=== PATIENT | male | born 1995 | race Caucasian/White ===

== ENCOUNTER 2017-10-25 19:16 | Emergency (ER) | payer OTHER ==
[2017-10-25] MEDS ORDERED: ALPRAZolam TAB* 0.5 MG PO ONE (20:48)
--- NOTE | 2017-10-25 21:45 | ED ---
Luigi Bella Rebecca, scribed for Steve Soriano MD on 10/25/17 at 2050 . Complex/Multi-Sys Presentation - HPI Summary HPI Summary: Pt is a 21 y/o M who presents to ED c/o anxiety. Pt reports he has been experiencing an increase in anxiety in the last 2 days, worsening tonight, though symptoms have improved since arrival. States that for the past 2 days he has been experiencing symptoms typical of his anxiety attacks, including decreased appetite and chest pressure. Sx aggravated by school beginning soon and having "a lot on my mind", alleviated by nothing. Denies SIs/HIs. Reports he has no official Dx of anxiety, though he has been seeing therapists for most of his life and that he gets anxiety attacks towards the end of each semester and 1-2x throughout the semester. Does not take any medications. - History Of Current Complaint Chief Complaint: EDGeneral Time Seen by Provider: 10/25/17 20:44 Hx Obtained From: Patient Onset/Duration: Lasting Days - 2 days, Still Present Severity Currently: Mild Severity Initially: Severe Location: Negative Aggravating Factor(s): School, "a lot on my mind" Alleviating Factor(s): Nothing Associated Signs And Symptoms: Positive: Other - Anxiety, decreased appetite, chest pressure Related History: Similar Episode/Diagnosed As: - Prior anxiety attacks - Allergies/Home Medications Allergies/Adverse Reactions: Allergies Allergy/AdvReac Type Severity Reaction Status Date / Time Tree Nuts Allergy Anaphylatic Verified 10/25/17 20:44 Shock PMH/Surg Hx/FS Hx/Imm Hx Previously Healthy: Yes Endocrine/Hematology History: Denies: Hx Diabetes Cardiovascular History: Denies: Hx Coronary Artery Disease, Hx Hypertension Infectious Disease History: No Infectious Disease History: Denies: Traveled Outside the [place] in Last 30 Days - Family History Known Family History: Positive: Other - ADHD, Bipolar Negative: Cardiac Disease - Social History Occupation: Student Alcohol Use: None Substance Use Type: Reports: None Smoking Status (MU): Never Smoked Tobacco Review of Systems Positive: Other - Chest pressure Positive: Other - Decreased appetite Positive: Anxious, Other - NEGATIVE: SIs/HIs All Other Systems Reviewed And Are Negative: Yes Physical Exam - Summary Physical Exam Summary: VITAL SIGNS: Reviewed. GENERAL: Patient is a well-developed and nourished male who is lying comfortable in the stretcher. Patient is not in any acute respiratory distress. HEAD AND FACE: No signs of trauma. No ecchymosis, hematomas or skull depressions. No sinus tenderness. EYES: PERRLA, EOMI x 2, No injected conjunctiva, no nystagmus. EARS: Hearing grossly intact. Ear canals and tympanic membranes are within normal limits. MOUTH: Oropharynx within normal limits. NECK: Supple, trachea is midline, no adenopathy, no JVD, no carotid bruit, no c- spine tenderness, neck with full ROM. CHEST: Symmetric, no tenderness at palpation LUNGS: Clear to auscultation bilaterally. No wheezing or crackles. CVS: Regular rate and rhythm, S1 and S2 present, no murmurs or gallops appreciated. ABDOMEN: Soft, non-tender. No signs of distention. No rebound no guarding, and no masses palpated. Bowel sounds are normal. EXTREMITIES: FROM in all major joints, no edema, no cyanosis or clubbing. NEURO: Alert and oriented x 3. No acute neurological deficits. Speech is normal and follows commands. SKIN: Dry and warm Triage Information Reviewed: Yes Vital Signs On Initial Exam: Initial Vitals Temp Pulse Resp BP Pulse Ox 99.3 F 99 20 142/81 95 10/25/17 19:23 10/25/17 19:23 10/25/17 19:23 10/25/17 19:23 10/25/17 19:23 Vital Signs Reviewed: Yes Diagnostics - Vital Signs Vital Signs Temp Pulse Resp BP Pulse Ox 10/25/17 19:23 99.3 F 99 20 142/81 95 - Laboratory Lab Statement: Any lab studies that have been ordered have been reviewed, and results considered in the medical decision making process. Complex Multi-Symp Course/Dx Assessment/Plan: Pt is a 21 y/o M who presents to ED c/o anxiety for the last 2 days, worsening tonight, though improved since arrival. States that he has been experiencing symptoms typical of his anxiety attacks, including decreased appetite and chest pressure. Sx aggravated by school beginning soon and having "a lot on my mind". Denies SIs/HIs. Reports he has no official Dx of anxiety, though he has been seeing therapists for most of his life and that he does not take any medications. In the ED course, pt was given Xanax, which improved sx. Pt will be D/C to home with Dx of anxiety and Rx for Xanax PRN with a follow up with his PCP. He understands and agrees. Allergy noted. - Diagnoses Provider Diagnoses: Anxiety Discharge - Discharge Plan Condition: Stable Disposition: HOME Prescriptions: ALPRAZolam TAB* [Xanax TAB*] 0.5 mg PO BID PRN #10 tab MDD 2 PRN Reason: Anxiety Patient Education Materials: Alprazolam (By mouth), Anxiety (ED) Referrals: [facility] - [place] WALLER [Primary Care Provider] - Additional Instructions: RETURN TO EMERGENCY DEPARTMENT FOR ANY NEW OR WORSENING SYMPTOMS The documentation as recorded by the Luigi moody Rebecca accurately reflects the service I personally performed and the decisions made by , Steve Soriano MD.
[2017-10-25 22:42] VITALS: BP 127/83
== END 2017-10-25 22:43 | disposition home or self-care (01) ==
LOC: ED 19:16
DX: F41.9 Anxiety disorder, unspecified (principal)
CPT/HCPCS: 99282; A9270-GY